=== PATIENT | female | born 1995 | race Caucasian/White ===

== ENCOUNTER 2022-11-13 19:53 | Emergency (ER) | payer OTHER, SELFPAY ==
[2022-11-13 19:57] VITALS: BP 139/98; PULSE 129; RESP 18; TEMP 36.6; O2SAT 100
--- NOTE | 2022-11-13 21:43 | ED.SKABFB ---
HPI - Skin/Abscess/Foreign Bdy General Chief complaint: Skin/Abscess/Foreign Body Stated complaint: spider bite Time Seen by Provider: 11/13/22 21:26 History of Present Illness HPI narrative: This is a 27-year-old female, with past history of liver injury of unknown cause (with persistent AST/ALT elevation), who presents to the emergency department complaining of generalized malaise and left leg pain after a spider bite 5 days ago. The patient states she believes the spider was a brown recluse. She has developed spreading redness and pain (5/10, dull) at the bite location on her left buttock. She complains of subjective fevers at home and palpitations. She has had 3-4 episodes of vomiting and stool with bright red blood (which is normal for her). Related Data Allergies Allergy/AdvReac Type Severity Reaction Status Date / Time Sulfa (Sulfonamide Allergy Severe Anaphylaxis Verified 11/13/22 21:16 Antibiotics) Review of Systems Review of Systems: CONSTITUTIONAL: Denies fever, chills, or sweats. CARDIOVASCULAR: Palpitations denies chest pain, or edema. RESPIRATORY: Denies cough or dyspnea. GASTROINTESTINAL: Denies abdominal pain, nausea, vomiting, or diarrhea. GENITOURINARY: Denies dysuria or hematuria. SKIN: Denies rash or itching. MUSCULOSKELETAL: Left buttock pain, myalgias denies back pain, NEUROLOGIC: Denies headache, numbness, dizziness, or weakness. PSYCHIATRIC: Denies anxiety or depression. PMFSH Past Medical History Medical History Esophagitis Gastritis Social History Social History (Updated 11/13/22 @ 23:44 by Zachary Mcleod MD) Smoking status: Never smoker Alcohol intake: former Substance use: never Exam Narrative: GENERAL: Well-developed, well-nourished, and in no acute distress. Appears uncomfortable HEAD: Normocephalic, atraumatic. EYES: PERRLA and EOMI. ENT: Nares clear, no rhinorrhea or epistaxis. Mucous membranes moist. Oropharynx without tonsillar hypertrophy exudate or other lesions. CHEST: Clear to auscultation. No respiratory distress. No wheezes rales or rhonchi HEART: Tachycardic with regular rhythm. No murmur heard. Normal peripheral pulses. ABDOMEN: Soft, nontender, nondistended, normal active bowel sounds. EXTREMITIES: An area of erythema with sharp borders measuring approximately 2 x 4 cm with a central, darker area of erythema is noted on the left buttock. Normal range of motion. No edema. SKIN: Warm, dry, no rash. NEURO: No focal deficits. Alert and oriented x3. PSYCH: Normal mood and affect. Course Course Emergency Course: 23:35 - CBC within normal limits. Chemistries demonstrate mild AST and ALT elevation at 119 and 57 respectively. The patient's heart rate improved from 130s to 99 after IV fluids. Her pain is improved after Tylenol and Percocet. She was given tetanus vaccination and a first dose of clindamycin here. Will discharge with recommendations for clindamycin, pain control with Tylenol and primary care follow-up. Discussed return and emergency precautions including signs/symptoms of acute abdomen and sepsis. The patient voiced understanding and is comfortable with the plan. All questions answered to her satisfaction. Vital Signs Vital signs: Vital Signs Temperature 97.9 F 11/13/22 19:57 Pulse Rate 129 H 11/13/22 19:57 Respiratory Rate 18 11/13/22 19:57 Blood Pressure 139/98 H 11/13/22 19:57 Pulse Oximetry 100 11/13/22 19:57 Oxygen Delivery Room Air 11/13/22 19:57 Temperature 97.9 F 11/13/22 19:57 Pulse Rate 99 11/13/22 23:33 Respiratory Rate 18 11/13/22 23:33 Blood Pressure 137/98 H 11/13/22 23:33 Pulse Oximetry 100 11/13/22 23:33 Oxygen Delivery Room Air 11/13/22 19:57 MDM - Skin/Abscess/Foreign Bdy MDM Narrative Medical decision making narrative: Plan: Labs, IV fluids, pain control, tetanus vaccination, reassess Differential Diagn
[2022-11-13] MEDS: ACETAMINOPHEN 500 MG TABLET 1000 MG PO (21:57)
[2022-11-13] MEDS: SODIUM CHLORIDE 0.9% IV 2,000 ML 999 ML IV CONT (21:58)
[2022-11-13 22:10] LABS: Basophils Absolute Auto 0.1 K/mm3 (0.0-0.1); Eosinophils Percent Auto 0.5 % (0-4.4); Hematocrit 40.1 % (37.0-47.0); Hemoglobin 13.5 g/dL (12.0-15.0); Immature Granulocyte Absolute 0.01 K/mm3 (0.00-0.031); Immature Granulocyte Percent A 0.2 % (0-0.5); Lymphocytes Absolute Auto 3.24 K/mm3 (0.9-3.2); Lymphocytes Percent Auto 51.7 % (18.3-44.2); Mean Corpuscular HGB Conc 33.7 g/dl (32-36); Mean Corpuscular Hemoglobin 32.2 pg (26-34); Mean Corpuscular Volume 95.7 fl (80-100); Mean Platelet Volume 8.2 fl (7.4-10.4); Monocytes Absolute Auto 0.5 K/mm3 (0.1-0.6); Monocytes Percent Auto 8.1 % (2.6-8.5); Neutrophils Absolute Auto 2.4 K/mm3 (1.3-6.7); Neutrophils Percent Auto 38.5 % (45.5-73.1); Platelet Count Result 270 k/mm3 (150-375); Red Blood Count 4.19 M/mm3 (4.2-5.4); Red Cell Distribution Width 14.9 % (11.5-14.5); White Blood Count 6.3 K/mm3 (4.5-10.0)
[2022-11-13 22:37] LABS: Alanine Aminotransferase 57 U/L (6-35); Albumin Level 4.7 g/dL (3.5-5.1); Alkaline Phosphatase 69 U/L (38-126); Anion Gap 11 mmol/L (8-16); Aspartate Amino Transferase 119 U/L (14-36); Bilirubin,Total 0.6 mg/dL (0.2-1.3); Blood Urea Nitrogen 12 mg/dL (7-17); Carbon Dioxide 24 mmol/L (22-30); Chloride 106 mmol/L (98-107); Estimated CRCL calculation 94 ml/min; Estimated Glomerular Filt Rate > 60; Glucose 76 mg/dL (65-110); Magnesium 2.3 mg/dL (1.6-2.3); Potassium 4.3 mmol/L (3.4-5.0); Sodium 141 mmol/L (137-145)
[2022-11-13] MEDS: TETANUS,DIPHTHERIA,AC PERTUSSIS ADULT (0.5 ML) BOOSTRIX IM (22:51)
[2022-11-13] MEDS: CLINDAMYCIN HCL 150 MG CAP 450 MG PO (23:26)
[2022-11-13] MEDS: oxyCODONE/ACETAMINOPHEN (*CRX) 5-325 MG TABLET 1 TABLET PO (23:26)
[2022-11-13 23:33] VITALS: BP 137/98; PULSE 99; RESP 18; O2SAT 100
== END 2022-11-14 00:08 | disposition home or self-care (01) ==
PROVIDERS: Emergency Provider Preventive Medicine Aerospace Medicine
DX: L03.317 Cellulitis of buttock (principal); Z23 Encounter for immunization
CPT/HCPCS: 36415; 80053; 81025; 83735; 85025; 90471; 90715; 96360; 96372; 99283; A9270; J7030